=== PATIENT | male | born 1985 | race African-American/Black ===

== ENCOUNTER 2023-07-03 00:29 | Inpatient (IN) | payer OTHER, SELFPAY ==
[2023-07-03 02:08] VITALS: BMI 41.3
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
[2023-07-03 07:00] VITALS: BMI 42.5
[2023-07-03 09:35] VITALS: BP 138/82; PULSE 86; RESP 16; TEMP 36.2; O2SAT 99
[2023-07-03] MEDS: hydrOXYzine HCL 25 MG TABLET PO ×2 (11:49→21:25)
--- NOTE | 2023-07-03 12:56 | HO.PSYCHPN ---
Subjective Subjective Reason For Visit: Bipolar II Disorder Unspc Anxiety Disorder Diagnostics Vital Signs (24Hr): Vital Signs - 24 hr 07/03/23 09:35 Temperature 97.1 F Pulse Rate 86 Respiratory Rate 16 Blood Pressure 138/82 Pulse Oximetry 99 Oxygen Delivery Method Room Air BMI result Body Mass Index 42.5 Medications Medications Current Medications Acetaminophen (Acetaminophen 325 Mg Tablet) 650 mg PO Q6H PRN PRN Reason: Headache/Pain Mild Scale (1-3) Al Hydroxide/Mg Hydroxide (Magnesium Hydrox/Alum Hydrox 30 Ml Oral.Susp) 30 ml PO Q6H PRN PRN Reason: Heartburn/Nausea Chlordiazepoxide HCl (Chlordiazepoxide Hcl 25 Mg Capsule) 25 mg PO TID PRN PRN Reason: withdrawal Hydroxyzine HCl (Hydroxyzine Hcl 25 Mg Tablet) 25 mg PO Q6H PRN PRN Reason: Anxiety Last Admin: 07/03/23 11:49 Dose: 25 mg Magnesium Hydroxide (Milk Of Magnesia 30 Ml Oral.Susp) 30 ml PO DAILY PRN PRN Reason: Constipation Nicotine (Nicotine 21 Mg Patch.Td24) 21 mg TRANSDERMA DAILY PRN PRN Reason: smoking cessation Nicotine Polacrilex (Nicotine Polacrilex 2 Mg Gum) 4 mg BUCCAL Q2H PRN PRN Reason: Nicotine Cravings Olanzapine (Olanzapine 5 Mg Tablet) 5 mg PO TID PRN PRN Reason: agitation Trazodone HCl (Trazodone Hcl 50 Mg Tablet) 50 mg PO BEDTIME MRX1 PRN PRN Reason: Insomnia Allergies Allergies Allergy/AdvReac Type Severity Reaction Status Date / Time No Known Allergies Allergy Verified 07/03/23 00:20 Assessment & Plan Time Spent With Patient Time: Total time managing care of this patient today ____ minutes.
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
--- NOTE | 2023-07-03 17:20 | P.CONHOSP_ITS ---
History of Present Illness Data of Consult Service Date: 07/03/23 Primary Care Provider: Unknown Physician HPI Reason for consult: Admission H&P Pt is a 37-year-old male with a PMH significant for?GERD, hernia repair, anxiety, and bipolar II disorder who is admitted to M5 psychiatry unit for increasing depression with SI with intentional overdose of 25 1 mg Ativan pills along with alcohol. Medical consult for admission H&P. ?Patient has no acute medical complaints at this time. Denies fever, chills, nausea, vomiting, abdominal pain. No change in bowel or bladder habits. No headache, acute vision changes. Denies chest pain/pressure, palpitations. No shortness of breath. Labs reviewed from [facility], grossly unremarkable. Review of Systems Review of Systems: Patient has no acute complaints at this time [facility] Medical History PTSD (post-traumatic stress disorder) Bipolar disorder Social History Household Members: Significant Other Household Members Other:: LIVES WITH GIRL FRIEND Housing: Apartment Do you presently have visiting nurse or other home services: No Patient Tobacco Use Status: Never used Tobacco Smoked in Last 30 Days: No e-Cigarette/Vaping Use: Never Used Patient Interested in Nicotine Replacement: No Patient Given Instructions on How to Stop Smoking: No (NOT A SMOKER) Second Hand Smoke Exposure: No Use of substances other than those prescribed or required for medical reasons: No Currently Displaying Signs/Symptoms of Drug Intoxication Withdrawal: No Any prior treatment program specific to substance use: No (REPORTS PRIOR USE OF PAIN PILLS ) Have you been hit, kicked, punched, or otherwise hurt by someone within the past year? If so, by whom?: No Do you feel safe in your current relationship?: Yes Is there a partner from a previous relationship who is making you feel unsafe now?: No Are you made to feel afraid or neglected: No Advance Directives: No Advance Directives Information Provided: Yes Do you have thoughts of harming others: None Do you have a plan to hurt others: No Plan Recently lost weight without trying: No Eating poorly because of decreased appetite: No Nutrition Risks: No Nutritional Risk Poor oral hygiene: No Meds Allergies Allergy/AdvReac Type Severity Reaction Status Date / Time No Known Allergies Allergy Verified 07/03/23 00:20 Active Medications: Current Medications Acetaminophen (Acetaminophen 325 Mg Tablet) 650 mg PO Q6H PRN PRN Reason: Headache/Pain Mild Scale (1-3) Al Hydroxide/Mg Hydroxide (Magnesium Hydrox/Alum Hydrox 30 Ml Oral.Susp) 30 ml PO Q6H PRN PRN Reason: Heartburn/Nausea Chlordiazepoxide HCl (Chlordiazepoxide Hcl 25 Mg Capsule) 25 mg PO TID PRN PRN Reason: withdrawal Hydroxyzine HCl (Hydroxyzine Hcl 25 Mg Tablet) 25 mg PO Q6H PRN PRN Reason: Anxiety Last Admin: 07/03/23 11:49 Dose: 25 mg Magnesium Hydroxide (Milk Of Magnesia 30 Ml Oral.Susp) 30 ml PO DAILY PRN PRN Reason: Constipation Nicotine (Nicotine 21 Mg Patch.Td24) 21 mg TRANSDERMA DAILY PRN PRN Reason: smoking cessation Nicotine Polacrilex (Nicotine Polacrilex 2 Mg Gum) 4 mg BUCCAL Q2H PRN PRN Reason: Nicotine Cravings Olanzapine (Olanzapine 5 Mg Tablet) 5 mg PO TID PRN PRN Reason: agitation Trazodone HCl (Trazodone Hcl 50 Mg Tablet) 50 mg PO BEDTIME MRX1 PRN PRN Reason: Insomnia Home Medications Medication Instructions Recorded Confirmed Last Taken Type lamotrigine 25 mg tablet (Lamictal) 25 mg PO DAILY 07/03/23 07/03/23 Unknown History multivitamin 1 tab PO DAILY 07/03/23 07/03/23 Unknown History pantoprazole 40 mg tablet,delayed 40 mg PO DAILY 07/03/23 07/03/23 Unknown History release Physical Exam Vital Signs and Narrative: Vital Signs: Last Vital Signs Temp 97.1 F 07/03/23 09:35 Pulse 86 07/03/23 09:35 Resp 16 07/03/23 09:35 BP 138/82 07/03/23 09:35 Pulse Ox 99 07/03/23 09:35 O2 Del Method Room Air 07/03/23 09:35 BMI result Body Mass Index 42.5 Constitutional: Alert, in no acute distress. Mental Status: Oriented to person, place and time. Eyes: Pupils are equal, round, and reactive to light. Ear, Nose, and Throat: Oropharynx clear, mucous membranes moist. Ears and nose without deformities. Trachea midline. Respiratory: Clear to auscultation bilaterally. No wheezing, rales, or rhonchi. Cardiovascular: S1, S2 regular. No murmurs, rubs, or gallops. Gastrointestinal: Abdomen soft, non-tender, non-distended. Normal bowel sounds. Neurologic: Cranial nerves II-XII are grossly intact bilaterally. No focal neurological deficits. Moves all extremities spontaneously. Skin: No rashes or lesions noted. Musculoskeletal: No cyanosis or clubbing. Extremities: No edema. Psychiatric: Normal mood and affect. Assessment and Plan (1) Medical clearance for psychiatric admission: Status: Acute Plan Pt is a 37-year-old male with a PMH significant for?GERD, hernia repair, anxiety, and bipolar II disorder who is admitted to M5 psychiatry unit for increasing depression with SI with intentional overdose of 25 1 mg Ativan pills along with alcohol. Medical consult for admission H&P. ?Patient has no acute medical complaints at this time. Mood disorder Plan as per Psychiatry Patient otherwise has no known chronic medical conditions or acute medical complaint is. Thank you for allowing us to participate in the care of this patient. Signing off at this time. Please let us know if there are any acute complaints or questions.
[2023-07-03 20:00] VITALS: BP 136/64; PULSE 84; TEMP 36.2
[2023-07-04 08:57] VITALS: BP 113/65; PULSE 82; RESP 16; TEMP 36.2; O2SAT 97
--- NOTE | 2023-07-04 13:04 | HO.PSYCHPN ---
Subjective Subjective Date of Service: 07/04/23 Reason For Visit: Bipolar II Disorder Unspc Anxiety Disorder Subjective Notes: Conditional Voluntary and 3 Day Healthcare Proxy: No Guardianship: No Medical Problems Affecting Mental Status: No Interim History: Pt beginning to integrate into milieu. He reviewed Vraylar information and agrees we should attempt a trial. Trial began today. Medication Compliance: Yes Side effects from medications: No Attending Groups: Intermittent Review of Systems Acute medical concerns: No Medical Review of Systems: unchanged Mental Status Exam Mental Status Exam Patient Appearance: Appropriate Patient Orientation: Person, Place, Time and Situation Level of Consciousness: Alert Patient Behavior: Appropriate, Talkative and Good Eye Contact Mood Description: Sad Affect Description: Flat Patient Cognition Impaired: No Ability to Follow Directions: Good Speech Pattern: Spontaneous Speech Memory Description: Intact Hallucinations: None Delusions: Not Present Thought Process: Intact and Goal Oriented Thought Content: positive for Intact and positive for Goal Oriented Depressive Symptoms: Feelings of Guilt and Thoughts of /Suicide (denies) Judgement: Good Diagnostics Vital Signs (24Hr): Vital Signs - 24 hr 07/03/23 20:00 07/04/23 08:57 Temperature 97.2 F 97.1 F Pulse Rate 84 82 Respiratory Rate 16 Blood Pressure 136/64 113/65 Pulse Oximetry 97 Oxygen Delivery Method Room Air BMI result Body Mass Index 42.5 Medications Medications Current Medications Acetaminophen (Acetaminophen 325 Mg Tablet) 650 mg PO Q6H PRN PRN Reason: Headache/Pain Mild Scale (1-3) Al Hydroxide/Mg Hydroxide (Magnesium Hydrox/Alum Hydrox 30 Ml Oral.Susp) 30 ml PO Q6H PRN PRN Reason: Heartburn/Nausea Cariprazine (Cariprazine Hcl 3 Mg Capsule) 3 mg PO DAILY LAURA Chlordiazepoxide HCl (Chlordiazepoxide Hcl 25 Mg Capsule) 25 mg PO TID PRN PRN Reason: withdrawal Hydroxyzine HCl (Hydroxyzine Hcl 25 Mg Tablet) 25 mg PO Q6H PRN PRN Reason: Anxiety Last Admin: 07/03/23 21:25 Dose: 25 mg Magnesium Hydroxide (Milk Of Magnesia 30 Ml Oral.Susp) 30 ml PO DAILY PRN PRN Reason: Constipation Nicotine (Nicotine 21 Mg Patch.Td24) 21 mg TRANSDERMA DAILY PRN PRN Reason: smoking cessation Nicotine Polacrilex (Nicotine Polacrilex 2 Mg Gum) 4 mg BUCCAL Q2H PRN PRN Reason: Nicotine Cravings Olanzapine (Olanzapine 5 Mg Tablet) 5 mg PO TID PRN PRN Reason: agitation Trazodone HCl (Trazodone Hcl 50 Mg Tablet) 50 mg PO BEDTIME MRX1 PRN PRN Reason: Insomnia Allergies Allergies Allergy/AdvReac Type Severity Reaction Status Date / Time No Known Allergies Allergy Verified 07/03/23 00:20 Assessment & Plan Assessment & Plan (1) PTSD (post-traumatic stress disorder): Status: Acute Code(s): F43.10 - Post-traumatic stress disorder, unspecified (2) Bipolar disorder: Status: Acute Code(s): F31.9 - Bipolar disorder, unspecified Plan 37 yo male, history of PTSD, Bipolar disorder, s/p impulsive overdose of Ativan 1 mg #25 and alcohol in response to several stressors. Plan: Review diagnostics Collateral contact Encourage milieu, however, pt has significant social anxiety it appears Aftercare planning By history, pt is non compliant with meds. Discussed Vraylar trial due to once daily dosing and reasonable SE profile. Pt will read about it and consider. Handout given. Three day notice expires 07/08/23. 07/05/23 Vraylar 3 mg daily [facility] milieu Family a good support for pt. Patient educated on: medication risk/benefits Informed Consent: understands Reason for continued inpatient stay Substantial Risk for: harm to self, inability to function and rapid decompensation Time Spent With Patient Time: Total time managing care of this patient today ____ minutes.
[2023-07-04] MEDS: Cariprazine HCl 3 MG CAPSULE PO (13:51)
[2023-07-04 18:00] VITALS: BP 123/60; PULSE 110; TEMP 36.5; O2SAT 97
[2023-07-05 08:30] VITALS: BP 131/61; PULSE 84; RESP 18; TEMP 36.2; O2SAT 97
[2023-07-05] MEDS: Cariprazine HCl 3 MG CAPSULE PO (09:01)
--- NOTE | 2023-07-05 12:24 | HO.PSYCHPN ---
Subjective Subjective Date of Service: 07/05/23 Reason For Visit: Bipolar II Disorder Unspc Anxiety Disorder Subjective Notes: 3 Day Healthcare Proxy: No Guardianship: No Medical Problems Affecting Mental Status: No Interim History: On CIWA, vitals stable. Eating and sleeping OK. Denies problems or questions. In bed this morning Medication Compliance: Yes Side effects from medications: No Attending Groups: No Review of Systems Acute medical concerns: No Medical Review of Systems: unchanged Mental Status Exam Mental Status Exam Patient Appearance: Unkempt Patient Orientation: Person, Place and Time Level of Consciousness: Alert Patient Behavior: Appropriate Mood Description: Calm Affect Description: Apathetic Patient Cognition Impaired: No Ability to Follow Directions: Good Speech Pattern: Clear Memory Description: Intact Hallucinations: None Delusions: Not Present Thought Process: Goal Oriented Thought Content: positive for Intact Judgement: Fair Diagnostics Vital Signs (24Hr): Vital Signs - 24 hr 07/04/23 18:00 07/05/23 08:30 Temperature 97.7 F 97.1 F Pulse Rate 110 H 84 Respiratory Rate 18 Blood Pressure 123/60 131/61 Pulse Oximetry 97 97 Oxygen Delivery Method Room Air Room Air BMI result Body Mass Index 42.5 Medications Medications Current Medications Acetaminophen (Acetaminophen 325 Mg Tablet) 650 mg PO Q6H PRN PRN Reason: Headache/Pain Mild Scale (1-3) Al Hydroxide/Mg Hydroxide (Magnesium Hydrox/Alum Hydrox 30 Ml Oral.Susp) 30 ml PO Q6H PRN PRN Reason: Heartburn/Nausea Cariprazine (Cariprazine Hcl 3 Mg Capsule) 3 mg PO DAILY LAURA Last Admin: 07/05/23 09:01 Dose: 3 mg Chlordiazepoxide HCl (Chlordiazepoxide Hcl 25 Mg Capsule) 25 mg PO TID PRN PRN Reason: withdrawal Hydroxyzine HCl (Hydroxyzine Hcl 25 Mg Tablet) 25 mg PO Q6H PRN PRN Reason: Anxiety Last Admin: 07/03/23 21:25 Dose: 25 mg Magnesium Hydroxide (Milk Of Magnesia 30 Ml Oral.Susp) 30 ml PO DAILY PRN PRN Reason: Constipation Nicotine (Nicotine 21 Mg Patch.Td24) 21 mg TRANSDERMA DAILY PRN PRN Reason: smoking cessation Nicotine Polacrilex (Nicotine Polacrilex 2 Mg Gum) 4 mg BUCCAL Q2H PRN PRN Reason: Nicotine Cravings Olanzapine (Olanzapine 5 Mg Tablet) 5 mg PO TID PRN PRN Reason: agitation Trazodone HCl (Trazodone Hcl 50 Mg Tablet) 50 mg PO BEDTIME MRX1 PRN PRN Reason: Insomnia Allergies Allergies Allergy/AdvReac Type Severity Reaction Status Date / Time No Known Allergies Allergy Verified 07/03/23 00:20 Assessment & Plan Assessment & Plan (1) PTSD (post-traumatic stress disorder): Status: Acute Code(s): F43.10 - Post-traumatic stress disorder, unspecified (2) Bipolar disorder: Status: Acute Code(s): F31.9 - Bipolar disorder, unspecified Plan 37 yo male, history of PTSD, Bipolar disorder, s/p impulsive overdose of Ativan 1 mg #25 and alcohol in response to several stressors. Plan: Review diagnostics Collateral contact Encourage milieu, however, pt has significant social anxiety it appears Aftercare planning By history, pt is non compliant with meds. Discussed Vraylar trial due to once daily dosing and reasonable SE profile. Pt will read about it and consider. Handout given. Three day notice expires 07/08/23. 07/05/23 Vraylar 3 mg daily [facility] Family a good support for pt. 07/04/23: no med changes Reason for continued inpatient stay Substantial Risk for: rapid decompensation Time Spent With Patient Time: Total time managing care of this patient today ____ minutes.
[2023-07-05 16:45] VITALS: BP 130/71; PULSE 70; RESP 16; TEMP 36.9; O2SAT 98
[2023-07-06 08:00] VITALS: BP 132/69; PULSE 86; RESP 18; TEMP 36.3; O2SAT 98
[2023-07-06] MEDS: Cariprazine HCl 3 MG CAPSULE PO (08:54)
--- NOTE | 2023-07-06 11:25 | HO.PSYCHPN ---
Subjective Subjective Date of Service: 07/06/23 Reason For Visit: Bipolar II Disorder Unspc Anxiety Disorder Subjective Notes: 3 Day Healthcare Proxy: No Guardianship: No Medical Problems Affecting Mental Status: No Interim History: Isolative. Denies problems. Eating and sleeping OK. Denies SI or urges to harm others. CIWA score zero this morning. Medication Compliance: Yes Side effects from medications: No Attending Groups: No Review of Systems Acute medical concerns: No Medical Review of Systems: unchanged Mental Status Exam Mental Status Exam Patient Appearance: Unkempt Patient Orientation: Person, Place, Time and Situation Level of Consciousness: Alert Patient Behavior: Appropriate Mood Description: Calm Affect Description: Withdrawn Patient Cognition Impaired: No Ability to Follow Directions: Good Speech Pattern: Clear Memory Description: Intact Hallucinations: None Delusions: Not Present Thought Process: Linear Judgement: Fair Diagnostics Vital Signs (24Hr): Vital Signs - 24 hr 07/05/23 16:45 07/06/23 08:00 Temperature 98.4 F 97.3 F Pulse Rate 70 86 Respiratory Rate 16 18 Blood Pressure 130/71 132/69 Pulse Oximetry 98 98 Oxygen Delivery Method Room Air Room Air BMI result Body Mass Index 42.5 Medications Medications Current Medications Acetaminophen (Acetaminophen 325 Mg Tablet) 650 mg PO Q6H PRN PRN Reason: Headache/Pain Mild Scale (1-3) Al Hydroxide/Mg Hydroxide (Magnesium Hydrox/Alum Hydrox 30 Ml Oral.Susp) 30 ml PO Q6H PRN PRN Reason: Heartburn/Nausea Cariprazine (Cariprazine Hcl 3 Mg Capsule) 3 mg PO DAILY LAURA Last Admin: 07/06/23 08:54 Dose: 3 mg Chlordiazepoxide HCl (Chlordiazepoxide Hcl 25 Mg Capsule) 25 mg PO TID PRN PRN Reason: withdrawal Hydroxyzine HCl (Hydroxyzine Hcl 25 Mg Tablet) 25 mg PO Q6H PRN PRN Reason: Anxiety Last Admin: 07/03/23 21:25 Dose: 25 mg Magnesium Hydroxide (Milk Of Magnesia 30 Ml Oral.Susp) 30 ml PO DAILY PRN PRN Reason: Constipation Nicotine (Nicotine 21 Mg Patch.Td24) 21 mg TRANSDERMA DAILY PRN PRN Reason: smoking cessation Nicotine Polacrilex (Nicotine Polacrilex 2 Mg Gum) 4 mg BUCCAL Q2H PRN PRN Reason: Nicotine Cravings Olanzapine (Olanzapine 5 Mg Tablet) 5 mg PO TID PRN PRN Reason: agitation Trazodone HCl (Trazodone Hcl 50 Mg Tablet) 50 mg PO BEDTIME MRX1 PRN PRN Reason: Insomnia Allergies Allergies Allergy/AdvReac Type Severity Reaction Status Date / Time No Known Allergies Allergy Verified 07/03/23 00:20 Assessment & Plan Assessment & Plan (1) PTSD (post-traumatic stress disorder): Status: Acute Code(s): F43.10 - Post-traumatic stress disorder, unspecified (2) Bipolar disorder: Status: Acute Code(s): F31.9 - Bipolar disorder, unspecified Plan 37 yo male, history of PTSD, Bipolar disorder, s/p impulsive overdose of Ativan 1 mg #25 and alcohol in response to several stressors. Plan: Review diagnostics Collateral contact Encourage milieu, however, pt has significant social anxiety it appears Aftercare planning By history, pt is non compliant with meds. Discussed Vraylar trial due to once daily dosing and reasonable SE profile. Pt will read about it and consider. Handout given. Three day notice expires 07/08/23. 07/05/23 Vraylar 3 mg daily [facility] Family a good support for pt. 07/04/23: no med changes 07/05:no changes 07/06: no changes, Clarify follow up Reason for continued inpatient stay Substantial Risk for: rapid decompensation Time Spent With Patient Time: Total time managing care of this patient today ____ minutes.
[2023-07-06 17:24] VITALS: BP 148/80; PULSE 104; RESP 18; TEMP 36.6; O2SAT 98
[2023-07-06] MEDS: hydrOXYzine HCL 25 MG TABLET PO (17:27)
[2023-07-07 08:35] VITALS: BP 131/99; PULSE 105; RESP 18; TEMP 36.6; O2SAT 96
[2023-07-07] MEDS: Cariprazine HCl 3 MG CAPSULE PO (08:51)
--- NOTE | 2023-07-07 09:40 | HO.PSYCHPN ---
Subjective Subjective Date of Service: 07/07/23 Reason For Visit: Bipolar II Disorder Unspc Anxiety Disorder Subjective Notes: Conditional Voluntary and 3 Day Healthcare Proxy: No Guardianship: No Medical Problems Affecting Mental Status: No Interim History: Pt reports a reasonable weekend. Tolerating Vraylar without adverse effects. Plans to return to family on 07/09 when three day notice is completed. Reports no SI, plan or intent. States the time in hospital has helped him to appreciate his family, , children and he is looking forward to returning to his home and role as and father. Medication Compliance: Yes Side effects from medications: No Attending Groups: Intermittent Review of Systems Acute medical concerns: No Medical Review of Systems: unchanged Mental Status Exam Mental Status Exam Patient Appearance: Appropriate Patient Orientation: Person, Place, Time and Situation Level of Consciousness: Alert Patient Behavior: Appropriate, Talkative, Cooperative and Good Eye Contact Mood Description: Appropriate Affect Description: Flat Patient Cognition Impaired: No Ability to Follow Directions: Good Speech Pattern: Spontaneous Speech Memory Description: Intact Hallucinations: None Delusions: Not Present Thought Process: Goal Oriented Thought Content: positive for Goal Oriented Depressive Symptoms: Thoughts of /Suicide (denies) Judgement: Good Diagnostics Vital Signs (24Hr): Vital Signs - 24 hr 07/06/23 17:24 Temperature 97.9 F Pulse Rate 104 H Respiratory Rate 18 Blood Pressure 148/80 H Pulse Oximetry 98 Oxygen Delivery Method Room Air BMI result Body Mass Index 42.5 Medications Medications Current Medications Acetaminophen (Acetaminophen 325 Mg Tablet) 650 mg PO Q6H PRN PRN Reason: Headache/Pain Mild Scale (1-3) Al Hydroxide/Mg Hydroxide (Magnesium Hydrox/Alum Hydrox 30 Ml Oral.Susp) 30 ml PO Q6H PRN PRN Reason: Heartburn/Nausea Cariprazine (Cariprazine Hcl 3 Mg Capsule) 3 mg PO DAILY LAURA Last Admin: 07/07/23 08:51 Dose: 3 mg Chlordiazepoxide HCl (Chlordiazepoxide Hcl 25 Mg Capsule) 25 mg PO TID PRN PRN Reason: withdrawal Hydroxyzine HCl (Hydroxyzine Hcl 25 Mg Tablet) 25 mg PO Q6H PRN PRN Reason: Anxiety Last Admin: 07/06/23 17:27 Dose: 25 mg Magnesium Hydroxide (Milk Of Magnesia 30 Ml Oral.Susp) 30 ml PO DAILY PRN PRN Reason: Constipation Nicotine (Nicotine 21 Mg Patch.Td24) 21 mg TRANSDERMA DAILY PRN PRN Reason: smoking cessation Nicotine Polacrilex (Nicotine Polacrilex 2 Mg Gum) 4 mg BUCCAL Q2H PRN PRN Reason: Nicotine Cravings Olanzapine (Olanzapine 5 Mg Tablet) 5 mg PO TID PRN PRN Reason: agitation Trazodone HCl (Trazodone Hcl 50 Mg Tablet) 50 mg PO BEDTIME MRX1 PRN PRN Reason: Insomnia Allergies Allergies Allergy/AdvReac Type Severity Reaction Status Date / Time No Known Allergies Allergy Verified 07/03/23 00:20 Assessment & Plan Assessment & Plan (1) PTSD (post-traumatic stress disorder): Status: Acute Code(s): F43.10 - Post-traumatic stress disorder, unspecified (2) Bipolar disorder: Status: Acute Code(s): F31.9 - Bipolar disorder, unspecified Plan 37 yo male, history of PTSD, Bipolar disorder, s/p impulsive overdose of Ativan 1 mg #25 and alcohol in response to several stressors. Plan: Review diagnostics Collateral contact Encourage milieu, however, pt has significant social anxiety it appears Aftercare planning By history, pt is non compliant with meds. Discussed Vraylar trial due to once daily dosing and reasonable SE profile. Pt will read about it and consider. Handout given. Three day notice expires 07/08/23. 07/05/23 Vraylar 3 mg daily [facility] Family a good support for pt. 07/04/23: no med changes 07/05:no changes 07/06: no changes, Clarify follow up 07/07 Discharge 07/08/23. Patient educated on: medication risk/benefits and therapeutic strategies Informed Consent: understands Reason for continued inpatient stay Substantial Risk for: rapid decompensation Time Spent With Patient Time: Total time managing care of this patient today ____ minutes.
[2023-07-07] MEDS: hydrOXYzine HCL 25 MG TABLET PO (16:37)
[2023-07-07 18:15] VITALS: BP 131/63; PULSE 113; RESP 16; TEMP 36.1; O2SAT 98
[2023-07-08 08:00] VITALS: BP 139/76; PULSE 92; RESP 18; TEMP 36.2; O2SAT 96
[2023-07-08] MEDS: Cariprazine HCl 3 MG CAPSULE PO (08:37)
[2023-07-08] MEDS: hydrOXYzine HCL 25 MG TABLET PO (08:41)
--- NOTE | 2023-07-08 19:26 | P.DS_ITS ---
DS: Providers Provider Date of Service: 07/08/23 Date of admission: 07/03/23 00:29 Date of discharge: 07/08/23 Primary care physician: Unknown Physician Admitting clinician: Cathie Garcia Attending physician on admission: Humberto Cadet Consults: 07/03/23 00:26 Consult to Hospitalist Routine Comment: Consulting Provider: Hospitalist Reason For Exam: admission physical Attending physician on discharge: Humberto Cadet Discharging clinician: Cathie Garcia DS: Diagnosis Discharge Diagnosis (1) PTSD (post-traumatic stress disorder): Status: Acute (2) Bipolar disorder: Status: Acute DS: Medications Discharge Medications Home Medications: Home Medications Medication Instructions Recorded Confirmed multivitamin 1 tab PO DAILY 07/03/23 07/03/23 pantoprazole 40 mg tablet,delayed 40 mg PO DAILY 07/03/23 07/03/23 release Previous Rx's Medication Instructions Recorded cariprazine 3 mg capsule (Vraylar) 3 mg PO DAILY #30 caps 07/07/23 Mental Status Exam Mental Status Exam Patient Appearance: Appropriate Patient Orientation: Person, Place, Time and Situation Level of Consciousness: Alert Patient Behavior: Appropriate, Talkative, Cooperative and Good Eye Contact Mood Description: Appropriate Affect Description: Flat Patient Cognition Impaired: No Ability to Follow Directions: Good Speech Pattern: Spontaneous Speech Memory Description: Intact Hallucinations: None Delusions: Not Present Thought Process: Goal Oriented Thought Content: positive for Goal Oriented Depressive Symptoms: Thoughts of /Suicide (denies) Judgement: Good DS: Summary Hospital Course Hospital Course: Admission to adult psychiatry in transfer from [facility] for exacerbation of PTSD and Bipolar Disorder in the context of an impulsive overdose of #25 1 mg Lorazepam. Pt identified stressors as financial, child support, stopping treatm ent with N along with stopping medications for Bipolar Disorder. Medications were evaluated, Vraylar was initiated with Santhosh which was tolerated. Pt exhibited no behavioral dyscontrol on the unit and did participate in his treatment. Pt signed a three day notice. was supportive of pt returning to home and expressed no concern about his safety once he re-established medications and arranged follow up out patient care. Time spent discussing smoking cessation with patient: 3 to 10 minutes Status at Discharge Functional status at discharge: independent ambulation Overall status at discharge: patient is progressing back to baseline Time Spent with Patient Time attestation: Total time managing care of this patient today ____ minutes. Time spent: Greater than 30 minutes Discharge Plan Discharge Anticipated Discharge Date/Time: 07/08/23 12:00 Patient Disposition: Home, Self-Care Discharge Diagnosis: PTSD Bipolar Disorder Referrals: [facility] [Other] - 07/08/23 11:45 am (Call the number the day of discharge to schedule a same day intake appt. Let them know you have just discharged from [facility] or walk-in (Tues and Th only 06-12). ) Lizbeth Moon, [employer] [Nurse Practitioner] - 1 Week (office will reach out to pt. with follow-up appointment.) Discharge Medications: New Vraylar 3 mg Capsule 3 mg PO DAILY Qty: 30 0RF Vraylar 3 mg capsule 3 mg PO DAILY Qty: 30 0RF Continued multivitamin Tablet 1 tab PO DAILY pantoprazole 40 mg Tablet,Delayed Release (Dr/Ec) 40 mg PO DAILY Discontinued lamotrigine [Lamictal] 25 mg Tablet 25 mg PO DAILY Discharge Orders: Discharge Order (Routine); Ordered 07/08/23 Ordered By: Cathie Garcia Diet: Advance to usual diet Activity on Discharge: As tolerated Stand Alone Forms: Patient Portal Discharge page, Community Support Care Plan Goals: Mood and Behavioral Stabilization Health Concerns: Mood and Behavioral Stabilization Plan of Treatment: Attend scheduled appointments Take medications as directed Assessment: Discharge via three day notice. Discharge Date/Time: 07/08/23 10:37
== END 2023-07-08 10:37 | disposition home or self-care (01) | DRG 753 ==
PROVIDERS: Admitting Provider Psychiatry & Neurology Psychiatry; Visit Provider Clinical Nurse Specialist Psychiatric/Mental Health, Adult
DX: F31.9 Bipolar disorder, unspecified (principal); F43.10 Post-traumatic stress disorder, unspecified; Z91.51 Personal history of suicidal behavior; Z79.899 Other long term (current) drug therapy

== ENCOUNTER → 2023-07-03 00:29 | Outpatient (BNV) | payer OTHER, SELFPAY | PROVIDERS: Admitting Provider Psychiatry & Neurology Psychiatry; Visit Provider Student in an Organized Health Care Education/Training Program | DX: Z02.2 Encounter for examination for admission to residential institution (principal) | CPT/HCPCS: 99429 ==

== ENCOUNTER → 2023-07-03 00:29 | Outpatient (BNV) | payer OTHER, SELFPAY | PROVIDERS: Admitting Provider Psychiatry & Neurology Psychiatry; Visit Provider Clinical Nurse Specialist Psychiatric/Mental Health, Adult | DX: F31.4 Bipolar disorder, current episode depressed, severe, without psychotic features (principal); F43.11 Post-traumatic stress disorder, acute | CPT/HCPCS: 99231; 99232 ==

== ENCOUNTER 2025-02-25 07:53 | Emergency (ER) | payer OTHER, SELFPAY ==
--- NOTE | ~2025-02-25 | XR_ITS ---
EXAMINATION: XR SHOULDER 2 OR MORE VIEWS LEFT HISTORY: pain COMPARISON: There are no prior studies available for comparison. FINDINGS: Three views of the left shoulder are submitted. Osseous mineralization is normal. There is no fracture or dislocation. The glenohumeral and acromioclavicular joint spaces are preserved. The soft tissues are unremarkable. XR/XR shoulder LT min 2V IMPRESSION: Unremarkable examination of the left shoulder. Electronically signed by: Serjio Hardwick MD 02/25/2025 08:39 AM EDT
[2025-02-25 07:55] VITALS: BP 138/82; PULSE 76; RESP 16; TEMP 36.4; O2SAT 98; BMI 42.8
--- NOTE | 2025-02-25 08:05 | ED_ITS ---
HPI - Extremity Problem General Chief complaint: Extremity Injury, Upper Stated complaint: Left Shoulder Pain Time Seen by Provider: 02/25/25 08:04 Source: patient, RN notes reviewed and old records reviewed Mode of arrival: ambulatory Limitations: no limitations History of Present Illness ED Provider: Johann CARDONA Narrative: Patient is a 39-year-old male presenting to the emergency department with complaint of chronic left shoulder pain for the past several years. Denies any initial precipitating injury to the area. States that pain waxes and wanes. Feels pain is often worsened by the air conditioning in his bedroom. Has been using Tylenol arthritis with good relief, also using topical icy hot with good relief. Does not have 1 position of comfort, states this changes from da y-to-day. Denies any weakness, numbness, tingling to left arm. Denies any tenderness to palpation, states that the pain is ?inside. ? Related Data Home Medications ?Medication ?Instructions ?Recorded ?Confirmed multivitamin 1 tab PO DAILY 07/03/2310/24 pantoprazole 40 mg tablet,delayed 40 mg PO DAILY 07/0307/03/23 release Previous Rx's ?Medication ?Instructions ?Recorded cariprazine 3 mg capsule (Vraylar) 3 mg PO DAILY #30 c aps 07/07/23 cariprazine 3 mg capsule (Vraylar) 3 mg PO DAILY #30 c aps 08/13/23 lidocaine 5 % topical patch 1 patch topical DAILY #15 ea 02/25/25 naproxen 500 mg tablet 500 mg PO BID #289 tabs 01/31 03/25 Allergies Allergy/AdvReac Type Severity Reaction Status Date / Time No Known Allergies Allergy Verified 02/25/25 07:58 Review of Systems Review of Systems: As per HPI Yes all other systems are reviewed and are negative Constitutional: Constitutional: Reports as per HPI [facility] Past Medical History Medical History PTSD (post-traumatic stress disorder) Bipolar disorder Social History Social History Household Members: Significant Other Household Members Other:: LIVES WITH GIRL FRIEND Housing: Apartment Do you presently have visiting nurse or other home services: No Patient Tobacco Use Status: Never used Tobacco Smoked in Last 30 Days: No e-Cigarette/Vaping Use: Never Used Second Hand Smoke Exposure: No Use of substances other than those prescribed or required for medical reasons: No Advance Directives: No Advance Directives Information Provided: No Do you have a plan to hurt others: No Plan service: No Sexual orientation: Straight/Heterosexual Physical Exam Vital Signs: Vital Signs: Last Vital Signs Temp 97.6 F 02/25/25 07:55 Pulse 76 02/25/25 07:55 Resp 16 02/25/25 07:55 BP 138/82 02/25/25 07:55 Pulse Ox 98 02/25/25 07:55 O2 Del Method Room Air 02/25/25 07:55 BMI result Body Mass Index 42.8 Vital signs have been reviewed and appear to be correct. Blood pressure normal. Heart rate normal. Respiratory rate normal. Temperature normal. Oxygen saturation normal. Const: General: cooperative, healthy appearing and no acute distress Orientation/consciousness: oriented to person, oriented to place, oriented to time and patient oriented x3 Limitations: no limitations HEENT: Head: Yes normocephalic and Yes atraumatic Ears: external ears normal General nose exam: Normal external nose present Face and sinus: Yes face symmetric Mouth: oropharynx normal and moist mucous membranes Throat: Yes uvula midline Eyes: Pupils: Equal, round and reactive pupils present Neck: Neck: Yes normal visual inspection and Yes supple Resp: Effort & Inspection: normal respiratory effort and able to speak in complete sentences Auscultation: clear to auscultation bilaterally Cardio: Rate: regular rate Rhythm: regular rhythm Heart sounds: S1 normal heart sound present and S2 normal heart sound present GI: Palpation (GI): Soft to palpation and nontender Auscultation: normoactive bowel sounds : General: Yes no CVA tenderness Back/Spine/Pelvis: Back: no CVA tenderness Skin: General skin exam: elasticity normal and turgor normal Neuro: General: oriented to person, oriented to place, oriented to time, patient oriented x3, moves all extremities, no focal motor deficits and CN's II- XI intact bilaterally Cranial nerves: Yes Equal, round and reactive pupils present Cognition (Neuro): normal cognition Extrem: General: Yes full ROM, Yes no pedal edema and Yes no calf tenderness Left upper extremity: shoulder/upper arm Details: inspection abnormal, axillary nerve sensory function normal and normal ROM; no tenderness, no swelling, no ecchymosis, no crepitus and no unsual warmth Psych: Mental Status: mental status grossly normal Affect: normal affect Thought process: Normal thought process present Medical Decision Making Medical Decision Making [facility] Narrative: Patient is a 39-year-old male presenting to the emergency department with complaint of chronic left shoulder pain for the past several years. On exam patient is awake, A+Ox3, VS WNL, afebrile, normal neurological exam without focal deficits, physical exam findings as above. Given reported symptoms and physical exam findings, initial differential includes but is not limited to arthritis, tendinopathy, rotator cuff strain/injury. X-ray left shoulder notable for no acute fracture. My interpretation is in agreement with the radiologist's interpretation. Results discussed with patient and all questions answered. Will send prescription for naproxen and topical lidocaine patches and will refer to orthopedics for further evaluation and management. Return precautions discussed with patient at bedside. Patient verbalized understanding of and agreement with plan. Differential Diagnosis Differential Diagnoses: The differential diagnosis associated with the presentation includes as per [facility] Admission/Observation Consideration of admission/observation: Escalation of care including admission/observation considered Patient would have been admitted to the hospital had their work up had any findings where hospital admission was appropriate and their clinical presentation warranted hospital admission. Independent Interpretation I performed an independent interpretation of an: Plain X-Ray Interpretation: No evidence of fracture left shoulder. Radiology Impression Discussion of test interpretation with radiology: I have reviewed the radiologist's reading. Radiologist Impression: EXAMINATION: XR SHOULDER 2 OR MORE VIEWS LEFT HISTORY: pain COMPARISON: There are no prior studies available for comparison. FINDINGS: Three views of the left shoulder are submitted. Osseous mineralization is normal. There is no fracture or dislocation. The glenohumeral and acromioclavicular joint spaces are preserved. The soft tissues are unremarkable. XR/XR shoulder LT min 2V IMPRESSION: Unremarkable examination of the left shoulder. External Record Review External record reviewed: Inpatient record, Office record and Outpatient record Prescription Management I considered prescription management with: Pain Medication Discharge Plan Discharge Clinical Impression: Left shoulder pain Patient Disposition: Home, Self-Care Instructions: Shoulder Pain (ED) Additional Instructions: You were evaluated in the emergency department today for left shoulder pain. Your x-ray did not show evidence of any fractures. You are being prescribed naproxen to decrease inflammation, take this medication as prescribed and do not take it in combination with any other NSAIDs (ibuprofen, Motrin, Advil, Aleve, etc.). You are also being prescribed topical lidocaine patches which you can wear for up to 12 hours in a 24 hour period. Do not apply heat directly over the patches. We recommend that you follow up with the orthopedic office for further evaluation and management of your symptoms. Call their office to schedule an appointment. Return to the emergency department if you develop new weakness, numbness, tingling to your arm or any other new or concerning symptoms. Prescriptions: New naproxen 500 mg tablet 500 mg PO BID Qty: 289 0RF lidocaine 5 % adhesive patch,medicated 1 patch topical DAILY Qty: 15 0RF Rx Instructions: leave on most painful area for up to 12 hrs No Action multivitamin Tablet 1 tab PO DAILY pantoprazole 40 mg Tablet,Delayed Release (Dr/Ec) 40 mg PO DAILY Vraylar 3 mg Capsule 3 mg PO DAILY Qty: 30 0RF Vraylar 3 mg capsule 3 mg PO DAILY Qty: 30 0RF Referrals: [facility] [Provider Group] - 2 weeks Referral Note: chronic left shoulder pain Clinical Impression: Left shoulder pain Print Language: Syriac
--- OUTSIDE RECORDS SUMMARY | 2025-02-25 08:29 | XMS_ITS | Clinical Summary ---
Author Organization [facility] ity Address [address] [place] [address] Care Team Providers Care Glove Pairer Name Role Phone Margarita Vargas MD Primary Care Provider [phone] Social History Tobacco Use Types Packs/Day Years Used Date Smoking Tobacco: Never Assessed Sex and Gender Information Value Date Recorded Sex Assigned at Not on file Legal Sex Male 10:00 AM EST Gender Identity Not on file Sexual Orientation Not on file Plan of Treatment Health Maintenance Due Date Last Done Comments DTaP,Tdap,and Td Vaccines (1 - Tdap) 2003 Hepatitis B Vaccines (1 of 3 - 19+ 3-dose series) 2003 Cholesterol Screening (Lipid Panel) 07/30/2022 Depression Screening 07/30/2022 HIV Screening 07/30/2022 Hepatitis C Screening 07/30/2022 Social Influencers of Health Screening 07/30/2022 COVID-19 Vaccine ( - 2023-2 5 season) 2024 Influenza Vaccine (Season Ended) 2025 HIB Vaccines Aged Out No longer eligi ble based on patient's age to complete this topic HPV Vaccines Aged Out No longer eligi ble based on patient's age to complete this topic Hepatitis A Vaccines Aged Out No long er eligible based on patient's age to complete this topic IPV Vaccines Aged Out No longer eligi ble based on patient's age to complete this topic MMR Vaccines Aged Out No longer eligi ble based on patient's age to complete this topic Meningococcal ACWY Vaccine Aged Out N o longer eligible based on patient's age to complete this topic Meningococcal B Vaccine Aged Out No l onger eligible based on patient's age to complete this topic Pneumococcal Vaccine: Pediat rics (0 to 5 Years) and At-Risk Patients (6 to 64 Years) Aged Out No longer eligible b ased on patient's age to complete this topic RSV Immunization Patients Un sravanthi 20 months Aged Out No longer eligible b ased on patient's age to complete this topic Varicella Vaccines Aged Out No longer eligible based on patient's age to complete this topic Care Teams Glove Pairer Relationship Specialty Start Date End Date Margarita Vargas MD PCP - General Internal Medicine 11/13/20
[2025-02-25 09:17] VITALS: BP 142/78; PULSE 72; RESP 15; TEMP 36.5; O2SAT 99
== END 2025-02-25 09:18 | disposition home or self-care (01) ==
PROVIDERS: Emergency Provider Emergency Medicine
DX: M25.512 Pain in left shoulder (principal)
CPT/HCPCS: 73030; 99283; 99284

== ENCOUNTER → 2025-02-25 08:15 | Outpatient (BNV) | payer OTHER, SELFPAY | PROVIDERS: Emergency Provider Emergency Medicine; Visit Provider Radiology Diagnostic Radiology | DX: M25.512 Pain in left shoulder (principal) | CPT/HCPCS: 73030 ==

== ENCOUNTER 2025-03-29 13:55 | Emergency (ER) | payer OTHER, SELFPAY ==
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
[2025-03-29 14:01] VITALS: BP 148/59; PULSE 100; RESP 16; TEMP 36.6; O2SAT 98; BMI 41.3
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
[2025-03-29 15:53] VITALS: BP 123/59; PULSE 84; RESP 17; TEMP 36.1; O2SAT 100
--- OUTSIDE RECORDS SUMMARY | 2025-03-29 16:39 | XMS_ITS | Clinical Summary ---
Author Organization [facility] it[facility] Address [address] [place] [address] Care Team Providers Care Print Shop Assistant Name Role Phone Margarita Vargas MD Primary Care Provider [phone] Social History Tobacco Use Types Packs/Day Years [...] series) 2003 Cholesterol Screening (Lipid Panel) 07/30/2022 HIV Screening 07/30/2022 Hepatitis C Screening 07/30/2022 Social Influencers of Health Screening 07/30/2022 COVID-19 Vaccine ( - 2023-2 5 season) 2024 Depression Screening 09/01/2024 Influenza Vaccine (#1) 2025 HIB Vaccines Aged Out No longer [...] 5 Years) and At-Risk Patients (6 to 49 Years) Aged Out No longer eligible b ased on patient's age to complete this topic RSV Immunization Patients Un sravanthi 20 months Aged Out No longer eligible b ased on patient's age to complete this topic Varicella Vaccines Aged Out No longer eligible based on patient's age to complete this topic Care Teams Print Shop Assistant Relationship Specialty Start Date End Date Margarita Vargas MD PCP - General Internal Medicine 11/13/20
--- OUTSIDE RECORDS SUMMARY | 2025-03-29 16:39 | XMS_ITS | Referral Summary ---
Author Organization [facility] Address [address] [place] [address] Care Team Providers Care Thread Spinner Name Role Phone Patient, Has No Pcp Or Ref Primary Care Provider Unavailable Allergies No known active allergies Medications No known medications Social History Tobacco Use Types Packs/Day Years Used Date Smoking Tobacco: Never Smokeless Tobacco: Never Tobacco Cessation:Counseling Given: Not Answered Alcohol Use Standard Drinks/Week Comments Yes 0 (1 standard drink = 0.6 oz pur e alcohol) occ Sex and Gender Information Value Date Recorded Sex Assigned at Male 03/22/2024 8:09 PM EDT Legal Sex Male 12:03 AM EDT Gender Identity Not on file Sexual Orientation Not on file Last Filed Vital Signs Vital Sign Reading Time Taken Comments Blood Pressure 126/84 03/22/2024 10:21 PM EDT Pulse 83 03/22/2024 7:14 PM EDT Temperature 37 C (98.6 F) 03/22/2024 7:14 PM EDT Respiratory Rate 18 03/22/2024 10:21 PM EDT Oxygen Saturation 97% 03/22/2024 10:21 PM EDT Inhaled Oxygen Concentration - - Weight 127 kg (280 lb) 03/22/2024 7:14 PM EDT Height - - Body Mass Index - - Plan of Treatment Not on file Insurance [facility]ICA[facility] Care Teams Thread Spinner Relationship Specialty Start Date End Date Patient, Has No Pcp Or Ref DO NOT EDIT THIS RECORD VIA PROVIDER ON THE FLY PCP - General Metal Trimmer 03/22/24
[2025-03-29 17:14] VITALS: BP 123/59; PULSE 84; RESP 17; TEMP 36.1; O2SAT 100
== END 2025-03-29 17:15 | disposition home or self-care (01) ==
PROVIDERS: Emergency Provider Emergency Medicine; PCP Family Medicine
DX: Z04.1 Encounter for examination and observation following transport accident (principal); M54.50 Low back pain, unspecified
CPT/HCPCS: 72100; 99283; 99284

== ENCOUNTER → 2025-03-29 14:10 | Outpatient (BNV) | payer OTHER, SELFPAY | PROVIDERS: Visit Provider Radiology Diagnostic Radiology | DX: M47.896 Other spondylosis, lumbar region (principal) | CPT/HCPCS: 72100 ==